=== PATIENT | male | born 1975 | race African-American/Black ===

== ENCOUNTER 2017-11-04 07:17 | Emergency (ER) | payer MEDICAID ==
[~2017-11-04] VITALS: Ht 198.1 cm; Wt 79.5 kg
[2017-11-04 07:21] VITALS: Ht 198.1 cm; Wt 79.5 kg
[2017-11-04] MEDS ORDERED: BACTRIM 400-801 TAB PO (07:23)
[2017-11-04 08:06] LABS: BASOPHILS 0.3 % (0-2); EOSINOPHILS 2.3 % (0-7); HEMATOCRIT 35.7 % (42.0-54.0); HEMOGLOBIN 11.5 g/dL (13.5-17.5); IMMATURE GRANULOCYTES 7.3 % (0-5); LYMPHOCYTES 10.1 % (15-50); MCH 28.5 pg (26.0-34.0); MCHC 32.2 g/dL (31.0-37.0); MCV 88.4 fL (80.0-100.0); MEAN PLATELET VOLUME 7.9 fL (7.4-10.4); MONOCYTES 11.2 % (2-11); NEUTROPHILS 68.8 % (40-80); PLATELET COUNT 207 10x3/uL (130-400); RBC 4.04 10x6/uL (4.20-6.10); RDW 16.2 % (11.5-14.5); WBC 9.1 10x3/uL (4.8-10.8)
[2017-11-04 08:22] LABS: ALKALINE PHOSPHATASE 60 U/L (46-116); ALT (SGPT) 27 U/L (10-68); BILIRUBIN - TOTAL 0.36 mg/dL (0.2-1.3); CALC OSMOLALITY 276 mosm/kg (275-300); CALCIUM 9.1 mg/dL (8.5-10.1); CARBON DIOXIDE 31.7 mmol/L (21.0-32.0); CHLORIDE - SERUM 101 mmol/L (98-107); GLUCOSE 116 mg/dL (74-106); PROTEIN - SERUM 7.2 g/dL (6.4-8.2); SODIUM 138 mmol/L (136-145); UREA NITROGEN 13 mg/dL (7-18); eGFR NON AFRICAN AMERICAN 87 mL/min (90-120)
[2017-11-04] MEDS ORDERED: LEVAQUIN750 MG PO (09:34)
[2017-11-04 10:02] VITALS: BP 118/70
== END 2017-11-04 09:58 | disposition home or self-care (01) ==
LOC: D.ER 07:17
PROVIDERS: Family Medicine
DX: J01.90 Acute sinusitis, unspecified (principal); K02.9 Dental caries, unspecified; R51 Headache